=== PATIENT | male | born 1990 | race Hispanic/Latino ===

== ENCOUNTER 2024-02-15 20:02 | Observation (INO) | payer OTHER ==
[~2024-02-15] VITALS: Ht 182.9 cm; Wt 129.7 kg
[2024-02-15] MEDS: ondanSETRON 4MG INJ IVP ONE (20:22)
[2024-02-15] MEDS: LACTATED RINGERS IV ONE (20:23)
[2024-02-15] MEDS: morPHINE 4 MG SYG IVP ONE (20:23)
[2024-02-15 20:26] LABS: BASOPHILS # (AUTO) 0.03 K/uL (0.00-0.20); BASOPHILS % (AUTO) 0.2 % (0.0-5.0); EOSINOPHILS # (AUTO) 0.03 K/uL (0.00-0.70); EOSINOPHILS % (AUTO) 0.2 % (0.0-8.0); HEMATOCRIT 47.6 % (42-54); IMMATURE GRANULOCYTE ABSOLUTE 0.09 K/uL (0-1); LYMPHOCYTES # (AUTO) 0.8 K/uL (1.0-4.8); LYMPHOCYTES % (AUTO) 5.4 % (21.0-51.0); MEAN CORPUSCULAR HEMOGLOBIN 27.6 pg (27.0-33.0); MEAN CORPUSCULAR HGB CONC 33.6 g/dL (32.0-36.0); MEAN CORPUSCULAR VOLUME 82.1 fL (79-99); MONOCYTES % (AUTO) 6.5 % (3.0-13.0); NEUTROPHILS % (AUTO) 87.1 % (40.0-77.0); PLATELET COUNT (AUTO) 263 K/uL (130-400); WHITE BLOOD COUNT (AUTO) 14.9 K/uL (4.8-10.8)
[2024-02-15 20:35] LABS: CREATININE 1.1 mg/dL (0.5-1.3)
[2024-02-15] MEDS: ZOSYN 3.375GM +NS 50ML IV ONE (20:51)
[2024-02-15] MEDS: hydroMORPHone 1 MG INJ IVP ONE (21:22)
[2024-02-16] MEDS: 0.9%NACL 1000ML 1,000 ML IV SCH (00:27)
[2024-02-16] MEDS: hydroMORPHone 1 MG INJ IV PRN (00:28)
[2024-02-16] MEDS ORDERED: MAGNESIUM 2GM PREMIX 50ML 50 ML IV PRN (00:30)
[2024-02-16] MEDS ORDERED: ondanSETRON 4MG INJ IV PRN (00:30)
[2024-02-16 01:36] VITALS: BP 136/73; PULSE 83; RESP 20; TEMP 98.8
[2024-02-16] MEDS ORDERED: TIRZ15PE SQ (02:03)
[2024-02-16] MEDS: morPHINE 2 MG SYG IV PRN (02:26)
[2024-02-16] MEDS: ketOROlac 30MG VIAL (30MG/ML) IVP STA (02:33)
[2024-02-16 04:00] VITALS: BP 135/79; PULSE 92; RESP 20; TEMP 98.5
[2024-02-16] MEDS: ZOSYN 3.375GM+NS 50ML 50 ML IV SCH (04:22)
[2024-02-16 05:21] LABS: BASOPHILS # (AUTO) 0.02 K/uL (0.00-0.20); BASOPHILS % (AUTO) 0.1 % (0.0-5.0); EOSINOPHILS # (AUTO) 0.01 K/uL (0.00-0.70); EOSINOPHILS % (AUTO) 0.1 % (0.0-8.0); IMMATURE GRANULOCYTE ABSOLUTE 0.06 K/uL (0-1); LYMPHOCYTES # (AUTO) 0.8 K/uL (1.0-4.8); LYMPHOCYTES % (AUTO) 5.4 % (21.0-51.0); MEAN CORPUSCULAR HEMOGLOBIN 27.3 pg (27.0-33.0); MEAN CORPUSCULAR HGB CONC 33.3 g/dL (32.0-36.0); MONOCYTES % (AUTO) 7.2 % (3.0-13.0); NEUTROPHILS # (AUTO) 12.3 K/uL (1.8-7.7); NEUTROPHILS % (AUTO) 86.8 % (40.0-77.0); PLATELET COUNT (AUTO) 208 K/uL (130-400); RED BLOOD CELL COUNT(AUTO) 5.49 MIL/uL (4.50-6.20); WHITE BLOOD COUNT (AUTO) 14.2 K/uL (4.8-10.8)
[2024-02-16 05:52] LABS: ALBUMIN 3.3 g/dL (3.5-5.0); BILIRUBIN,TOTAL 0.9 mg/dL (0.2-1.0); CREATININE 0.9 mg/dL (0.5-1.3); MAGNESIUM 1.9 mg/dL (1.80-2.40); POTASSIUM 3.8 mmol/L (3.5-5.1); TOTAL PROTEIN, SERUM 6.8 g/dL (6.0-8.3)
[2024-02-16 06:01] LABS: HEMOGLOBIN A1C 5.1 % (4.0-6.0)
[2024-02-16 06:44] LABS: ERYTHROCYTE SEDIMENTATION RATE 11 MM/HR (0-15)
[2024-02-16 08:00] VITALS: BP 132/77; PULSE 100; RESP 19; TEMP 97.6
[2024-02-16] MEDS: FAMOTIDINE 20MG VIAL IV SCH (08:28)
[2024-02-16] MEDS: ketOROlac 15MG/ML VIAL (15MG/ML) IV PRN (09:08)
[2024-02-16] MEDS ORDERED: BisaCODYL 10 MG SUPP.RECT RC PRN (10:25)
[2024-02-16] MEDS: hydroMORPHone 0.5 MG SYG (0.5MG/0.5ML) IV PRN (11:26)
[2024-02-16 12:00] VITALS: BP 119/59; PULSE 110; RESP 17; TEMP 97.6
[2024-02-16] MEDS ORDERED: ketOROlac 30MG VIAL (30MG/ML) IVP PRN (14:00)
[2024-02-16] MEDS ORDERED: hydroMORPHone 1 MG INJ IVP PRN (14:30)
[2024-02-16] MEDS: ketOROlac 30MG VIAL (30MG/ML) IVP SCH (14:30)
[2024-02-16] MEDS: hydroMORPHone 1 MG INJ IVP ONE (14:53)
[2024-02-16 16:00] VITALS: BP 128/83; PULSE 122; RESP 19; TEMP 99.6
[2024-02-16] MEDS: hydroMORPHone 1 MG INJ IVP PRN (17:15)
[2024-02-16] MEDS: acetaMINOPHEN 325 MG TAB PO PRN (17:54)
[2024-02-16 20:00] VITALS: BP 122/82; PULSE 119; RESP 18; TEMP 98.2; O2SAT 96
[2024-02-17] VITALS (20 sets, daily range): BP systolic 109–152; BP diastolic 57–83; PULSE 85–106; RESP 18–21; TEMP 97.3–98.4; O2SAT 95–98
[2024-02-17 05:20] LABS: BASOPHILS # (AUTO) 0.02 K/uL (0.00-0.20); BASOPHILS % (AUTO) 0.2 % (0.0-5.0); EOSINOPHILS # (AUTO) 0.08 K/uL (0.00-0.70); EOSINOPHILS % (AUTO) 0.7 % (0.0-8.0); HEMATOCRIT 42.5 % (42-54); IMMATURE GRANULOCYTE ABSOLUTE 0.05 K/uL (0-1); LYMPHOCYTES # (AUTO) 0.9 K/uL (1.0-4.8); LYMPHOCYTES % (AUTO) 7.9 % (21.0-51.0); MEAN CORPUSCULAR HEMOGLOBIN 27.8 pg (27.0-33.0); MEAN CORPUSCULAR HGB CONC 32.9 g/dL (32.0-36.0); MEAN CORPUSCULAR VOLUME 84.3 fL (79-99); MONOCYTES % (AUTO) 8.6 % (3.0-13.0); NEUTROPHILS # (AUTO) 9.4 K/uL (1.8-7.7); NEUTROPHILS % (AUTO) 82.2 % (40.0-77.0); PLATELET COUNT (AUTO) 197 K/uL (130-400); RED BLOOD CELL COUNT(AUTO) 5.04 MIL/uL (4.50-6.20); RED CELL DISTRIBUTION WIDTH 13.2 % (11.0-15.5); WHITE BLOOD COUNT (AUTO) 11.5 K/uL (4.8-10.8)
[2024-02-17 05:36] LABS: POTASSIUM 3.6 mmol/L (3.5-5.1)
[2024-02-17] MEDS: PoTASSium chloRIDE 20MEQ/100ML 100 ML IV PRN (05:46)
[2024-02-17] MEDS: LACTATED RINGERS 1000ML 1,000 ML IV ONE (12:48)
[2024-02-17] MEDS ORDERED: FENTanyl CITRate PF 50 MCG/1 ML 2ML VIAL ONE ×2 (12:52→13:52)
[2024-02-17] MEDS ORDERED: MIDAZOLAM HCL 1 MG/ML 2ML VIAL ONE (12:52)
[2024-02-17] MEDS ORDERED: rocuRONium bROMide 10MG/1ML 5ML VL ONE ×2 (12:53→13:54)
[2024-02-17] MEDS ORDERED: proPOFol 10 MG/ML 20ML VIAL IV ONE ×2 (12:53→13:37)
[2024-02-17] MEDS ORDERED: LIDOCAINE PF 100MG/5ML (2%) SYRINGE 5ML ONE (12:53)
[2024-02-17] MEDS ORDERED: GLYCOPYRROLATE 0.2 MG/ML 5 ML VIAL ONE (13:27)
[2024-02-17] MEDS ORDERED: dexaMETHasone SOD PHOSPHATE 10MG/ML 1ML VIAL ONE (13:27)
[2024-02-17] MEDS ORDERED: ondanSETRON 4MG INJ ONE (13:28)
[2024-02-17] MEDS ORDERED: NEOSTIGMINE METHYLSULFATE 1MG/ML IV ONE (13:28)
[2024-02-17] MEDS: ceFAZolin SODIUM 1 GM VIAL ONE (13:36)
[2024-02-17] MEDS: BUPIvacaine/PF 0.25% 30ML VIAL IJ ONE (13:58)
[2024-02-17] MEDS: LIDOCAINE HCL 1% 20 ML VIAL ONE (13:58)
[2024-02-17] MEDS ORDERED: ketOROlac 30MG VIAL (30MG/ML) ONE (14:43)
[2024-02-17] MEDS: morPHINE 4 MG SYG ONE (16:43)
[2024-02-17] MEDS: acetaMINOPHEN 1,000 MG/100 ML VIAL IV ONE (16:43)
[2024-02-17] MEDS: oxyCODONE/aceTAMIN 5/325MG TAB PO PRN (17:01)
[2024-02-18 00:14] VITALS: BP 123/74; PULSE 82; RESP 20; TEMP 98.2
[2024-02-18 03:51] LABS: BASOPHILS # (AUTO) 0.01 K/uL (0.00-0.20); BASOPHILS % (AUTO) 0.1 % (0.0-5.0); HEMATOCRIT 37.4 % (42-54); IMMATURE GRANULOCYTE ABSOLUTE 0.07 K/uL (0-1); LYMPHOCYTES # (AUTO) 0.5 K/uL (1.0-4.8); LYMPHOCYTES % (AUTO) 3.8 % (21.0-51.0); MEAN CORPUSCULAR HEMOGLOBIN 27.1 pg (27.0-33.0); MEAN CORPUSCULAR HGB CONC 33.4 g/dL (32.0-36.0); MONOCYTES # (AUTO) 0.7 K/uL (0.1-1.0); MONOCYTES % (AUTO) 5.8 % (3.0-13.0); NEUTROPHILS # (AUTO) 10.9 K/uL (1.8-7.7); NEUTROPHILS % (AUTO) 89.7 % (40.0-77.0); PLATELET COUNT (AUTO) 223 K/uL (130-400); RED BLOOD CELL COUNT(AUTO) 4.62 MIL/uL (4.50-6.20); RED CELL DISTRIBUTION WIDTH 12.9 % (11.0-15.5); WHITE BLOOD COUNT (AUTO) 12.1 K/uL (4.8-10.8)
[2024-02-18 03:58] LABS: CREATININE 1.1 mg/dL (0.5-1.3); POTASSIUM 4.1 mmol/L (3.5-5.1)
[2024-02-18 04:34] VITALS: BP 106/69; PULSE 69; RESP 20; TEMP 97.6
[2024-02-18 08:00] VITALS: O2SAT 99
[2024-02-18 08:09] VITALS: BP 127/76; PULSE 78; RESP 19; TEMP 97.4
[2024-02-18 11:22] VITALS: BP 127/75; PULSE 78; RESP 16; TEMP 97.5
[2024-02-18] MEDS ORDERED: IBUP-2070 PO (15:08)
[2024-02-18 15:55] VITALS: BP 131/56; PULSE 80; RESP 20; TEMP 97.5
== END 2024-02-18 16:15 | disposition home or self-care (01) ==
LOC: EDH 20:02 → EDHIP 02-16 00:05 → INTOOBSV 02-16 00:05 → 4CH 02-16 01:36
PROVIDERS: ADMIT Hospitalist; ATTEND Hospitalist
DX: K80.00 Calculus of gallbladder with acute cholecystitis without obstruction (principal); E66.01 Morbid (severe) obesity due to excess calories; K82.8 Other specified diseases of gallbladder; I10 Essential (primary) hypertension; Z94.7 Corneal transplant status; Z68.38 Body mass index [BMI] 38.0-38.9, adult; Z86.2 Personal history of diseases of the blood and blood-forming organs and certain disorders involving the immune mechanism; Z79.899 Other long term (current) drug therapy
CPT/HCPCS: 96366 ×4; 99284; 80048 ×3; 83690; 85025 ×4; 87040; 83605; 96365; 96375 ×2; 96376 ×3; 83036; 83735; 80061; 80053; 85651; 36415 ×3; 74018; 84145; 47562; 88302; 88304; J1170 ×8; J2405 ×2; J2270 ×4; J2543 ×8; J3490 ×8; J1885 ×10; G0378 ×22; J7030; A4452; J7120; J3010 ×2; J0690; J1100; J0665; J2001; J2250; J2704 ×2; J3480; J2710; A6206; C1769 ×3; A4649 ×5; A4930 ×2; A4223; A4222; A4600